=== PATIENT | female | born 1995 | race Asian ===

== ENCOUNTER 2018-12-10 19:23 | Emergency (ER) | payer OTHER ==
[~2018-12-10] VITALS: Ht 144.8 cm; Wt 47.6 kg
[2018-12-10 19:41] VITALS: BP 108/72
--- NOTE | 2018-12-10 19:47 | NUR ---
PT AMBULATED TO LOBBY WITH VSS
[2018-12-10] MEDS ORDERED: KETOROLAC 60 MG/2 ML VIAL IM ONE (20:55)
--- NOTE | 2018-12-10 21:07 | NUR ---
PT BIB SELF FOR STIFF NECK AFTER WAKING THIS AM. DENIES TRAUMA OR INJURY. NO BRUISING, SWELLING OR REDNESS NOTED. PT SITTING IN CHAIR , AWAKE AND CALM IN NO DISTRESS, DR HAMPTON AWARE OF PT STATUS.
[2018-12-10 21:24] VITALS: BP 108/72
--- NOTE | 2018-12-10 21:24 | NUR ---
Patient discharged with v/s stable. Written and verbal after care instructions given and explained. Patient alert, oriented and verbalized understanding of instructions. Ambulatory with steady gait. All questions addressed prior to discharge. ID band removed. Patient advised to follow up with PMD. Rx of NAPROSYN given. Patient educated on indication of medication including possible reaction and side effects. Opportunity to ask questions provided and answered. D/C BY DR HAMPTON
== END 2018-12-10 21:24 | disposition home or self-care (01) ==
LOC: MED 19:23
DX: S16.1XXA Strain of muscle, fascia and tendon at neck level, initial encounter (principal); X58.XXXA Exposure to other specified factors, initial encounter; Y93.89 Activity, other specified; Y92.89 Other specified places as the place of occurrence of the external cause; Y99.8 Other external cause status
CPT/HCPCS: 81025; 96372; 99283; J1885